=== PATIENT | female | born 1965 | race Caucasian/White ===

== ENCOUNTER → 2019-10-13 | Outpatient (CLI) | payer BC | END | disposition home or self-care (01) | LOC: OIH 10:21 | PROVIDERS: ATTEND Internal Medicine | DX: R91.8 Other nonspecific abnormal finding of lung field (principal); M54.6 Pain in thoracic spine | CPT/HCPCS: 71046; 72070 ==

== ENCOUNTER 2019-11-07 13:53 | Observation (INO) | payer BC ==
[~2019-11-07] VITALS: Ht 157.5 cm; Wt 47.0 kg
[2019-11-07 14:32] LABS: BASOPHILS % (AUTO) 0.2 % (0.0-5.0); EOSINOPHILS % (AUTO) 0.5 % (0.0-8.0); HEMATOCRIT 44.6 % (36-48); LYMPHOCYTES % (AUTO) 7.4 % (21.0-51.0); MEAN CORPUSCULAR HEMOGLOBIN 30.5 pg (27.0-33.0); MEAN CORPUSCULAR HGB CONC 33.6 g/dL (32.0-36.0); MEAN CORPUSCULAR VOLUME 90.8 fL (79-99); MONOCYTES % (AUTO) 4.1 % (3.0-13.0); NEUTROPHILS % (AUTO) 87.5 % (40.0-77.0); PLATELET COUNT (AUTO) 171 K/uL (130-400); RED BLOOD CELL COUNT(AUTO) 4.91 MIL/uL (4.00-5.50); RED CELL DISTRIBUTION WIDTH 12.2 % (11.0-15.5); WHITE BLOOD COUNT (AUTO) 9.9 K/uL (4.8-10.8)
[2019-11-07 14:48] LABS: ALBUMIN 4.2 g/dL (3.5-5.0); BILIRUBIN,TOTAL 0.6 mg/dL (0.2-1.0); TOTAL PROTEIN, SERUM 7.7 g/dL (6.0-8.3)
[2019-11-07] MEDS ORDERED: ONDANSETRON HCL 4 MG/2 ML VIAL ONE (14:54)
[2019-11-07] MEDS ORDERED: DEXTROSE 5 %-0.45 % NACL 1,000 ML IV SCH (16:15)
[2019-11-07] MEDS ORDERED: MORPHINE SULFATE 4 MG/1ML SYG ONE (16:57)
--- NOTE | 2019-11-07 17:45 | NUR ---
NOTE ADMITTED FOR SBO. CAME INTO E.R. WITH C/O ABDOMINAL PAIN AND N/V. HAD CT SCAN ABD PELVIS. DX SBO. WILL BE NPO NGT LIWS. LAST BM YESTERDAY. BOWEL SOUNDS ACTIVE TO ALL QUADRANTS. IVF WILL BE STARTED AND ENCOURAGED AMBULATION.
[2019-11-07] MEDS ORDERED: ACETAMINOPHEN 325 MG TAB PO PRN (18:30)
[2019-11-07] MEDS ORDERED: ONDANSETRON HCL 4 MG/2 ML VIAL IV PRN (18:30)
[2019-11-07] MEDS ORDERED: MORPHINE SULFATE 4 MG/1ML SYG IV PRN (18:30)
[2019-11-07] MEDS ORDERED: AMOX-429 PO (18:37)
[2019-11-07 18:54] VITALS: BP 117/60
[2019-11-07] MEDS ORDERED: DEXTROSE 5 %-0.45 % NACL 1,000 ML IV ONE (19:09)
[2019-11-07] MEDS: DEXTROSE 5 %-0.45 % NACL 1,000 ML IV SCH (19:30)
[2019-11-07 20:15] VITALS: BP 123/69
[2019-11-07 23:55] VITALS: BP 100/53
[2019-11-08] MEDS: DEXTROSE 5 %-0.45 % NACL 1,000 ML IV SCH (04:09)
[2019-11-08 04:15] VITALS: BP 99/61
[2019-11-08 05:15] LABS: HEMATOCRIT 47.6 % (36-48); MEAN CORPUSCULAR HGB CONC 33.2 g/dL (32.0-36.0); MEAN CORPUSCULAR VOLUME 93.3 fL (79-99); RED BLOOD CELL COUNT(AUTO) 5.1 MIL/uL (4.00-5.50); RED CELL DISTRIBUTION WIDTH 12.4 % (11.0-15.5); WHITE BLOOD COUNT (AUTO) 5.6 K/uL (4.8-10.8)
[2019-11-08 05:39] LABS: CREATININE 1.2 mg/dL (0.5-1.5); POTASSIUM 4.9 mmol/L (3.5-5.1)
[2019-11-08 08:17] VITALS: BP 109/63
--- NOTE | 2019-11-08 11:13 | NUR ---
chart reviewed, acf uploaded
[2019-11-08 11:47] VITALS: BP 119/64
--- NOTE | 2019-11-08 16:41 | NUR ---
[facility] NOTE. PATIETNT DISCHARGED IN OBS STATUS PRIOR TO ASSESSMENT BY CM NO TRIGGERS TO CM, NO CONCERNS VOICED TO PRIMARY CATALINA Addendum: 11/08/19 at 1642 by FRANKLIN OLSON RN CM Amended: Links added.
== END 2019-11-08 14:50 | disposition home or self-care (01) ==
LOC: EDH 13:53 → EDHIP 15:40 → 3AH 17:23
PROVIDERS: ADMIT Internal Medicine; ATTEND Internal Medicine
DX: K56.609 Unspecified intestinal obstruction, unspecified as to partial versus complete obstruction (principal); R11.2 Nausea with vomiting, unspecified; K59.00 Constipation, unspecified; Z90.49 Acquired absence of other specified parts of digestive tract
CPT/HCPCS: 36415 ×2; 71045; 74176; 80048; 80053; 85025; 85027; 96361 ×2; 96374; 99285; G0378 ×10; J2270 ×2; J2405; J7042 ×2

== ENCOUNTER 2022-02-21 10:58 | Observation (INO) | payer BC ==
[~2022-02-21] VITALS: Ht 157.5 cm; Wt 47.5 kg
[~2022-02-21 10:58] MED LIST: AMOX-429 PO
[2022-02-21] MEDS ORDERED: 0.9%NACL 1000ML 1,000 ML IV SCH (11:30)
[2022-02-21] MEDS ORDERED: TAMSULOSIN HCL 0.4 MG CAP.ER.24H ONE (11:35)
[2022-02-21 11:37] LABS: BASOPHILS % (AUTO) 0.7 % (0.0-5.0); EOSINOPHILS % (AUTO) 0.5 % (0.0-8.0); HEMATOCRIT 42.2 % (36-48); LYMPHOCYTES % (AUTO) 10.6 % (21.0-51.0); MEAN CORPUSCULAR HEMOGLOBIN 30.9 pg (27.0-33.0); MEAN CORPUSCULAR HGB CONC 33.6 g/dL (32.0-36.0); MEAN CORPUSCULAR VOLUME 91.9 fL (79-99); NEUTROPHILS % (AUTO) 82.8 % (40.0-77.0); PLATELET COUNT (AUTO) 180 K/uL (130-400); RED BLOOD CELL COUNT(AUTO) 4.59 MIL/uL (4.00-5.50); RED CELL DISTRIBUTION WIDTH 12.4 % (11.0-15.5); WHITE BLOOD COUNT (AUTO) 13.7 K/uL (4.8-10.8)
[2022-02-21 11:42] LABS: APPEARANCE,URINE SL CLOUDY (CLEAR); BILIRUBIN,URINE NEGATIVE (NEGATIVE); COLOR,URINE YELLOW (YELLOW); GLUCOSE, URINE (UA) NEGATIVE (NEGATIVE); KETONES,URINE 5 mg/dL (NEGATIVE); LEUKOCYTE ESTERASE ,URINE SMALL (NEGATIVE); NITRATE,URINE NEGATIVE (NEGATIVE); OCCULT BLOOD,URINE LARGE (NEGATIVE); PH,URINE 7.5 (5.0-8.0); PROTEIN,URINE 100 mg/dL (NEGATIVE); UROBILINOGEN,URINE 0.2 mg/dL (0.2-1.0)
[2022-02-21 11:45] LABS: CREATININE 1.2 mg/dL (0.5-1.5)
[2022-02-21] MEDS: ONDANSETRON 4MG INJ IVP PRN ×2 (11:45→22:43)
[2022-02-21] MEDS: TAMSULOSIN HCL 0.4 MG CAP.ER.24H PO SCH (11:45)
[2022-02-21] MEDS: CEFTRIAXONE 1G VIAL IVP SCH (11:45)
[2022-02-21 11:49] LABS: INR 0.94 (0.85-1.15); PROTHROMBIN TIME 10.3 SEC (9.6-11.6)
[2022-02-21 11:50] LABS: PARTIAL THROMBOPLASTIN TIME 28.3 SEC (26.3-35.5)
[2022-02-21 11:52] LABS: BACTERIA,URINE Few /HPF (None Seen); RBC,URINE 26-50 /HPF (0-1)
[2022-02-21 11:55] LABS: ALBUMIN 4.1 g/dL (3.5-5.0); TOTAL PROTEIN, SERUM 7.7 g/dL (6.0-8.3)
[2022-02-21] MEDS: HYDROMORPHONE 0.5 MG SYG (0.5MG/0.5ML) IVP PRN ×2 (11:58→22:43)
[2022-02-21 12:45] LABS: ERYTHROCYTE SEDIMENTATION RATE 16 MM/HR (0-30)
[2022-02-21] MEDS: 1/2 NS 1000ML 1,000 ML IV SCH ×2 (14:05→22:43)
[2022-02-21 22:20] VITALS: BP 110/52
[2022-02-22] VITALS (25 sets, daily range): BP systolic 91–121; BP diastolic 43–71
[2022-02-22 06:05] LABS: ALBUMIN 2.7 g/dL (3.5-5.0); POTASSIUM 3.8 mmol/L (3.5-5.1); TOTAL PROTEIN, SERUM 5.6 g/dL (6.0-8.3)
[2022-02-22] MEDS: ONDANSETRON 4MG INJ IVP PRN (06:34)
[2022-02-22] MEDS: TAMSULOSIN HCL 0.4 MG CAP.ER.24H PO SCH (09:00)
[2022-02-22] MEDS: 1/2 NS 1000ML 1,000 ML IV SCH (09:01)
[2022-02-22] MEDS: CEFTRIAXONE 1G VIAL IVP SCH (12:34)
[2022-02-22] MEDS ORDERED: FENTANYL CITRATE PF 50 MCG/1 ML 2ML VIAL ONE ×2 (14:48→17:00)
[2022-02-22] MEDS ORDERED: ROCURONIUM 10MG/1ML SYR 10 MG/ML ML ONE ×2 (14:48→17:07)
[2022-02-22] MEDS ORDERED: MIDAZOLAM HCL 1 MG/ML 2ML VIAL ONE (14:48)
[2022-02-22] MEDS ORDERED: PROPOFOL 10 MG/ML 20ML VIAL IV ONE (14:48)
[2022-02-22] MEDS ORDERED: IOHEXOL-350 50ML VIAL IV ONE (15:56)
[2022-02-22] MEDS ORDERED: ONDANSETRON 4MG INJ ONE (17:08)
[2022-02-22] MEDS ORDERED: EPHEDRINE SULFATE 50 MG/ML AMPULE ONE (18:29)
[2022-02-22] MEDS ORDERED: GLYCOPYRROLATE 1 MG/5 ML SYRINGE ONE (19:05)
[2022-02-22] MEDS ORDERED: NEOSTIGMINE 5MG/5ML SYR IV ONE (19:05)
[2022-02-23] VITALS: BP 102/56
[2022-02-23 00:30] VITALS: BP 102/49
[2022-02-23 01:30] VITALS: BP 104/52
[2022-02-23 04:00] VITALS: BP 104/59
[2022-02-23] MEDS: TAMSULOSIN HCL 0.4 MG CAP.ER.24H PO SCH (08:36)
[2022-02-23] MEDS ORDERED: PHENAZOPYRIDINE HCL 200 MG TABLET PO SCH (09:00)
== END 2022-02-23 09:45 | disposition home or self-care (01) ==
LOC: EDH 10:58 → EDHIP 10:59 → 3AH 21:41
PROVIDERS: ADMIT Internal Medicine; ATTEND Internal Medicine
DX: N13.2 Hydronephrosis with renal and ureteral calculous obstruction (principal); Z20.822 Contact with and (suspected) exposure to COVID-19; K51.90 Ulcerative colitis, unspecified, without complications; Z87.442 Personal history of urinary calculi; Z79.899 Other long term (current) drug therapy
CPT/HCPCS: 96374; 96376 ×2; 96375; 82550; 83874; 84484; 80053 ×2; 85025; 85610; 85730; 85651; 87040 ×2; 87088; 83605; 81001; 36415 ×2; 71046; 74176; 52005; 50590; 87635; 74420; G0378 ×45; G0379; J7030; J0696 ×2; J2405 ×4; J1170 ×3; J7120; A4355; C1758; C2617; J3010 ×2; J3490 ×2; J2710; J2250; J2704; Q9967; A4358; C1769

== ENCOUNTER 2022-05-04 06:54 | Day surgery (SDC) | payer BC ==
[2022-05-02 13:23] LABS: BASOPHILS % (AUTO) 1.2 % (0.0-5.0); EOSINOPHILS % (AUTO) 2.3 % (0.0-8.0); HEMATOCRIT 39.9 % (36-48); LYMPHOCYTES % (AUTO) 33.1 % (21.0-51.0); MEAN CORPUSCULAR HEMOGLOBIN 30.2 pg (27.0-33.0); MEAN CORPUSCULAR HGB CONC 32.6 g/dL (32.0-36.0); MEAN CORPUSCULAR VOLUME 92.6 fL (79-99); MONOCYTES % (AUTO) 6.6 % (3.0-13.0); NEUTROPHILS % (AUTO) 56.5 % (40.0-77.0); PLATELET COUNT (AUTO) 158 K/uL (130-400); RED BLOOD CELL COUNT(AUTO) 4.31 MIL/uL (4.00-5.50); RED CELL DISTRIBUTION WIDTH 12.6 % (11.0-15.5); WHITE BLOOD COUNT (AUTO) 6.4 K/uL (4.8-10.8)
[2022-05-02 13:41] LABS: CREATININE 0.9 mg/dL (0.5-1.5); POTASSIUM 4.2 mmol/L (3.5-5.1)
[2022-05-03 12:24] VITALS: BP 119/58
[~2022-05-04] VITALS: Ht 157.5 cm; Wt 47.9 kg
[2022-05-04] VITALS (19 sets, daily range): BP systolic 108–132; BP diastolic 47–80
[2022-05-04] MEDS ORDERED: LACTATED RINGERS 1000ML 1,000 ML IV ONE (07:27)
[2022-05-04] MEDS: CEFTRIAXONE 1G VIAL ONE ×2 (07:38→09:45)
[2022-05-04] MEDS ORDERED: PROPOFOL 10 MG/ML 20ML VIAL IV ONE (09:14)
[2022-05-04] MEDS ORDERED: LIDOCAINE PF 100MG/5ML (2%) SYRINGE 5ML ONE (09:14)
[2022-05-04] MEDS ORDERED: MIDAZOLAM HCL 1 MG/ML 2ML VIAL ONE (09:14)
[2022-05-04] MEDS ORDERED: FENTANYL CITRATE PF 50 MCG/1 ML 2ML VIAL ONE (09:15)
[2022-05-04] MEDS ORDERED: GLYCOPYRROLATE 1 MG/5 ML SYRINGE ONE (09:19)
[2022-05-04] MEDS ORDERED: ROCURONIUM 10MG/1ML SYR 10 MG/ML ML ONE (09:20)
[2022-05-04] MEDS ORDERED: NEOSTIGMINE 5MG/5ML SYR IV ONE (09:20)
[2022-05-04] MEDS ORDERED: EPHEDRINE SULFATE 50 MG/ML AMPULE ONE (10:07)
[2022-05-04] MEDS ORDERED: ACET-2079 PO (13:09)
[2022-05-04] MEDS ORDERED: ONDA4TAB10 PO (22:10)
== END 2022-05-04 13:40 | disposition home or self-care (01) ==
LOC: DAH 06:54
PROVIDERS: ATTEND Urology
DX: Z46.6 Encounter for fitting and adjustment of urinary device (principal); N20.0 Calculus of kidney; Z20.822 Contact with and (suspected) exposure to COVID-19
CPT/HCPCS: 80048; 84703; 85025; 87426; 36415; 50590; 52310; 99284; 96374; 96361; 96375; A6260; A4663; J7120; J3010; J3490 ×2; J2710; J7030; J2001; J0696; J2250; J2704; J2405; J1885; J2765; A4215; A4223; A4222; A4221; A4495; A4600; 96365

== ENCOUNTER 2022-05-04 20:39 | Emergency (ER) | payer BC ==
[~2022-05-04] VITALS: Ht 157.5 cm; Wt 47.6 kg
[~2022-05-04 20:39] MED LIST changes: +ACET-2079 PO; -AMOX-429 PO
[2022-05-04] MEDS ORDERED: KETOROLAC 30MG VIAL (30MG/ML) IVP ONE (21:00)
[2022-05-04] MEDS ORDERED: 0.9%NACL 1000ML 1,000 ML IV SCH (21:00)
[2022-05-04] MEDS ORDERED: PROMETHAZINE HCL 25 MG/ML 1ML AMPULE IM ONE (21:00)
[2022-05-04] MEDS ORDERED: METOCLOPRAMIDE 10 MG/2 ML VIAL ONE (21:05)
[2022-05-04] MEDS ORDERED: METOCLOPRAMIDE 10 MG/2 ML VIAL IVP ONE (21:30)
[2022-05-04] MEDS ORDERED: ONDA4TAB10 PO (22:10)
[2022-05-04 22:17] VITALS: BP 127/70
[2022-05-04] MEDS ORDERED: ONDANSETRON 4MG INJ IVP ONE (22:30)
== END 2022-05-04 22:24 | disposition home or self-care (01) ==
LOC: EDH 20:39
DX: G89.18 Other acute postprocedural pain (principal); R11.2 Nausea with vomiting, unspecified; E86.0 Dehydration; Z79.1 Long term (current) use of non-steroidal anti-inflammatories (NSAID)
CPT/HCPCS: 96365; 99284; 96361; J7030; J2405; J1885; J2765; 96374; 96375

== ENCOUNTER 2022-05-10 13:42 | Inpatient (IN) | payer BC ==
[~2022-05-10] VITALS: Ht 157.5 cm; Wt 44.5 kg
[~2022-05-10 13:42] MED LIST changes: +ONDA4TAB10 PO
[2022-05-10 14:21] LABS: BASOPHILS % (AUTO) 0.6 % (0.0-5.0); HEMATOCRIT 34.2 % (36-48); LYMPHOCYTES % (AUTO) 12.7 % (21.0-51.0); MEAN CORPUSCULAR HEMOGLOBIN 30.1 pg (27.0-33.0); MEAN CORPUSCULAR HGB CONC 32.7 g/dL (32.0-36.0); MEAN CORPUSCULAR VOLUME 91.9 fL (79-99); MONOCYTES % (AUTO) 6.4 % (3.0-13.0); NEUTROPHILS % (AUTO) 78.9 % (40.0-77.0); PLATELET COUNT (AUTO) 176 K/uL (130-400); RED BLOOD CELL COUNT(AUTO) 3.72 MIL/uL (4.00-5.50); RED CELL DISTRIBUTION WIDTH 12.8 % (11.0-15.5); WHITE BLOOD COUNT (AUTO) 7.1 K/uL (4.8-10.8)
[2022-05-10] MEDS ORDERED: 0.9%NACL 1000ML 1,000 ML IV SCH ×2 (14:30→20:30)
[2022-05-10] MEDS ORDERED: ONDANSETRON 4MG INJ IVP ONE (14:30)
[2022-05-10 14:37] LABS: CREATININE 1.2 mg/dL (0.5-1.5)
[2022-05-10 14:43] LABS: ALBUMIN 3.3 g/dL (3.5-5.0); TOTAL PROTEIN, SERUM 7.3 g/dL (6.0-8.3)
[2022-05-10 14:46] LABS: AMYLASE 62 U/L (25-115); LIPASE 176 U/L (114-286)
[2022-05-10 15:09] LABS: APPEARANCE,URINE CLOUDY (CLEAR); BILIRUBIN,URINE NEGATIVE (NEGATIVE); COLOR,URINE YELLOW (YELLOW); GLUCOSE, URINE (UA) NEGATIVE (NEGATIVE); KETONES,URINE >=80 mg/dL (NEGATIVE); LEUKOCYTE ESTERASE ,URINE 500 Leu/uL (NEGATIVE); NITRATE,URINE NEGATIVE (NEGATIVE); OCCULT BLOOD,URINE LARGE (NEGATIVE); PH,URINE 5.5 (5.0-8.0); PROTEIN,URINE 50 mg/dL (NEGATIVE); UROBILINOGEN,URINE 0.2 mg/dL (0.2-1.0)
[2022-05-10 15:16] LABS: BACTERIA,URINE RARE /HPF (None Seen); MUCUS,URINE RARE LPF (None Seen); RBC,URINE TNTC /HPF (0-1); SQUAMOUS EPITHELIAL CELL,UR FEW /HPF (0-2); WBC,URINE TNTC /HPF (0-1)
[2022-05-10] MEDS ORDERED: CEFTRIAXONE 1G VIAL IVP ONE (17:00)
[2022-05-10] MEDS ORDERED: SULF1TAB42 PO (17:02)
[2022-05-10] MEDS ORDERED: MORPHINE 2 MG SYG IV PRN (20:30)
[2022-05-10] MEDS ORDERED: ONDANSETRON 4MG INJ IV PRN (20:30)
[2022-05-10] MEDS ORDERED: ACETAMINOPHEN 325 MG TAB PO PRN ×2 (20:30)
[2022-05-10] MEDS ORDERED: CEFTRIAXONE 1G VIAL IVP SCH ×2 (21:00→21:30)
[2022-05-10] MEDS ORDERED: FAMOTIDINE 20MG VIAL IV SCH (21:00)
[2022-05-10] MEDS ORDERED: 1/2 NS 1000ML 1,000 ML IV SCH (21:30)
[2022-05-10] MEDS ORDERED: ONDANSETRON 4MG INJ IVP PRN (21:30)
[2022-05-10] MEDS ORDERED: HYDROMORPHONE 0.5 MG SYG (0.5MG/0.5ML) IVP PRN (21:30)
[2022-05-10 22:44] VITALS: BP 144/83
[2022-05-11] VITALS (22 sets, daily range): BP systolic 114–134; BP diastolic 56–75
[2022-05-11 04:12] LABS: BASOPHILS % (AUTO) 0.8 % (0.0-5.0); EOSINOPHILS % (AUTO) 1.6 % (0.0-8.0); HEMATOCRIT 30.7 % (36-48); LYMPHOCYTES % (AUTO) 27.5 % (21.0-51.0); MEAN CORPUSCULAR HEMOGLOBIN 29.2 pg (27.0-33.0); MEAN CORPUSCULAR HGB CONC 31.6 g/dL (32.0-36.0); MEAN CORPUSCULAR VOLUME 92.5 fL (79-99); MONOCYTES % (AUTO) 7.6 % (3.0-13.0); NEUTROPHILS % (AUTO) 62.3 % (40.0-77.0); PLATELET COUNT (AUTO) 161 K/uL (130-400); RED BLOOD CELL COUNT(AUTO) 3.32 MIL/uL (4.00-5.50); WHITE BLOOD COUNT (AUTO) 6.3 K/uL (4.8-10.8)
[2022-05-11 04:36] LABS: ALBUMIN 2.6 g/dL (3.5-5.0); POTASSIUM 4.1 mmol/L (3.5-5.1); TOTAL PROTEIN, SERUM 5.9 g/dL (6.0-8.3)
[2022-05-11] MEDS ORDERED: DEXTROSE 50%-WATER 50 ML DISP.SYRIN IV ONE ×2 (10:16→12:46)
[2022-05-11] MEDS ORDERED: LACTATED RINGERS 1000ML 1,000 ML IV ONE (10:39)
[2022-05-11] MEDS ORDERED: CEFTRIAXONE 1G VIAL ONE (10:45)
[2022-05-11] MEDS ORDERED: IOHEXOL-350 50ML VIAL IV ONE (10:49)
[2022-05-11] MEDS ORDERED: FAMOTIDINE 20MG VIAL IV ONE (12:07)
[2022-05-11] MEDS ORDERED: MIDAZOLAM HCL 1 MG/ML 2ML VIAL ONE (12:12)
[2022-05-11] MEDS ORDERED: FENTANYL CITRATE PF 50 MCG/1 ML 2ML VIAL ONE (12:12)
[2022-05-11] MEDS ORDERED: PROPOFOL 10 MG/ML 20ML VIAL IV ONE (12:12)
[2022-05-11] MEDS ORDERED: SUCCINYLCHOLINE CHLORIDE 20 MG/ML 10 ML VIAL ONE (12:18)
[2022-05-11] MEDS ORDERED: ROCURONIUM 10MG/1ML SYR 10 MG/ML ML ONE (12:18)
[2022-05-11] MEDS ORDERED: ONDANSETRON 4MG INJ ONE (12:39)
[2022-05-11] MEDS ORDERED: SUGAMMADEX SODIUM 200 MG/2 ML VIAL IV ONE (13:42)
[2022-05-11] MEDS ORDERED: PHENAZOPYRIDINE HCL 200 MG TABLET PO SCH (17:00)
== END 2022-05-11 18:09 | disposition home or self-care (01) | DRG 661 ==
LOC: EDH 13:42 → INTOOBSV 20:22 → EDHIP 20:22 → OBSVTOIN 20:22 → 3BH 22:45
PROVIDERS: ADMIT Internal Medicine; ATTEND Internal Medicine
PROC: BT141ZZ Fluoroscopy of Kidneys, Ureters and Bladder using Low Osmolar Contrast (ICD-10-PCS; 2022-05-11)
PROC: 0TC68ZZ Extirpation of Matter from Right Ureter, Via Natural or Artificial Opening Endoscopic (ICD-10-PCS; principal; 2022-05-11 12:42)
PROC: 0T768DZ Dilation of Right Ureter with Intraluminal Device, Via Natural or Artificial Opening Endoscopic (ICD-10-PCS; 2022-05-11 12:42)
DX: N13.6 Pyonephrosis (principal); Z20.822 Contact with and (suspected) exposure to COVID-19; Z87.442 Personal history of urinary calculi
CPT/HCPCS: 36415; 74018; 74176; 80053; 81001; 82150; 82360; 82948; 83690; 84145; 85025; 87088; 87426; A4344; C1758; C1769; G0378; J0330; J0696; J2250; J2405; J2704; J3010; J3490; J7070; J7120; Q9967

== ENCOUNTER → 2024-05-18 | Outpatient (CLI) | payer OTHER ==
[~2024-05-18] MED LIST changes: +ONDA-243 PO; -ONDA4TAB10 PO; +SULF1TAB42 PO
--- NOTE | 2024-05-18 11:04 | HMCIMG ---
CT CORONARY CALCIFICATION SCORING: Anatomic images were reviewed. The calcium score is being generated and reported separately. This report is for the visualized anatomy only. Visualized portions of the lungs are clear. Hilar and mediastinal structures appear normal. Osseous structures are unremarkable. Impression: 1. Negative noncardiac anatomic findings. 2. The calcium score is 0 consistent with absence of calcified plaque. CT was performed with one or more following dose reduction techniques: automated exposure control, adjustment of the mA and kv according to patient's size, or use of a iterative reconstruction technique.
== END | disposition home or self-care (01) ==
LOC: RAH 08:24
PROVIDERS: ATTEND Internal Medicine
DX: Z13.6 Encounter for screening for cardiovascular disorders (principal)
CPT/HCPCS: 75571